=== PATIENT | female | born 1985 | race Caucasian/White ===

== ENCOUNTER → 2016-10-31 | Day surgery (SDC) | payer OTHER ==
[~2016-10-31] VITALS: Ht 160 cm; Wt 90.7 kg
[~2016-10-31] MED LIST: 0.9% Sodium Chloride 1,000 ML IV PRN; ALBU18HF INH; CETI10CA PO; CITA10TA9 PO; EPIN0.1520 IJ; FLUC150T3 PO; FLUT9.9S NS; IBUP-1827 PO; LORA10CA PO; NORG1TAB14 PO; PANT40TA2 PO; Sodium Chloride LOK Flush 10 mL Syringe IV PRN; fentaNYL-PF 50 mCg/mL 2 mL Inj IVPUSH PRN
[2016-10-31 09:24] VITALS: BP 134/79; PULSE 88; RESP 14; O2SAT 97
[2016-10-31 10:13] VITALS: BP 137/89; PULSE 103; O2SAT 96
[2016-10-31 10:24] VITALS: BP 131/83; PULSE 102; O2SAT 97
--- NOTE | 2016-10-31 22:31 | ENDO ---
[address] [address] ENDOSCOPY PROCEDURE PATIENT: TIFFANY SCOTT : 1985 MR#: [id number] ADMIT: 10/31/2016 JOB ID: [id number] DATE OF SERVICE: 10/31/2016 PROCEDURE: Esophagogastroduodenoscopy. INDICATIONS: Gastroesophageal reflux. The patient's ASA classification is 1, Mallampati score is 2. MEDICATIONS: 1. Versed 6 mg. 2. Fentanyl 125 mcg. INSTRUMENT USED: GIF H 180 J. PROCEDURE DETAILS: After informed consent was obtained, the patient was brought to the GI suite, where she was placed on oxygen via nasal cannula and monitored with continuous pulse oximeter, telemetry, and blood pressure monitoring. A time-out was performed. Then, she was placed in the left lateral decubitus position and medications were administered for sedation. A bite block was placed. The standard EGD scope was inserted through the bite block and advanced under direct visualization to the second portion of the duodenum without difficulty. FINDINGS: 1. Normal-appearing duodenal bulb, first and second portion. Multiple random biopsies were obtained. 2. Normal-appearing pylorus and antrum. Multiple random biopsies were obtained. 3. In the gastric body, there was an approximately 5 mm sessile polyp. Polyp appearance was consistent with fundic gland polyp. The polyp was completely removed with cold biopsy forceps. 4. Multiple random biopsies were obtained in the gastric body. 5. Retroflexed views in the gastric body revealed a normal-appearing cardia and fundus. 6. The GE junction was at approximately 35 cm. There was a short tongue of erythema arising from the GE junction. A single biopsy was obtained. Also, at the GE junction there was evidence of a partial Schatzki ring. As the patient had no symptoms of dysphagia or history of food bolus obstruction, dilation of the Schatzki's was not performed. The remainder of the esophagus otherwise unremarkable. IMPRESSION: 1. Gastric body polyp. 2. Slightly irregular gastroesophageal junction. 3. Partial Schatzki's ring. RECOMMENDATIONS: 1. Continue PPI. 2. Weight loss encouraged. 3. Follow up in GI clinic with Yazmin Ruiz PA-C. COMPLICATIONS: None. ESTIMATED BLOOD LOSS: Less than 5 mL.
--- NOTE | 2016-11-02 10:26 | PATH ---
SURGICAL PATHOLOGY Attending Physician:Nikolai Conrad CASE STATUS: Signed Out PATIENT NAME: TIFFANY SCOTT PID: [id number] : 1985 DATE COLLECTED:10/31/2016 16:42 SPECIMEN: 1: Duodenum, Biopsy 2: Gastric, Biopsy 3: Stomach, Polyp, Biopsy 4: Esophagus, Biopsy CLINICAL HISTORY: 1). DUODENAL BIOPSY (RULE OUT H.PYLORI) 2). RANDOM GASTRIC BIOPSY (RULE OUT H.PYLORI) 3). GASTRIC POLYP (RULE OUT H.PYLORI) 4). DISTAL ESOPHAGUS BIOPSY FINAL DIAGNOSIS: 1.DUODENAL BIOPSY: DUODENAL MUCOSA WITH NO DIAGNOSTIC ABNORMALITY. Negative for active inflammation, features of sprue, dysplasia, and malignancy. 2.RANDOM GASTRIC BIOPSY: GASTRIC BODY-TYPE MUCOSA WITH NO DIAGNOSTIC ABNORMALITY. Negative for Helicobacter pylori microorganisms. Negative for intestinal metaplasia. Negative for dysplasia and malignancy. 3.GASTRIC POLYP, BIOPSY: FUNDIC GLAND POLYP. Negative for Helicobacter pylori microorganisms by immunohistochemical stain. Negative for intestinal metaplasia. Negative for dysplasia and malignancy. 4.DISTAL ESOPHAGUS, BIOPSY: SQUAMOCOLUMNAR JUNCITONAL MUCOSA WITH CHRONIC FOCALLY ACTIVE INFLAMMATION INVOLVING GLANDULAR MUCOSA. Negative for intestinal metaplasia. Negative for dysplasia and malignancy. [id number] GROSS DESCRIPTION: The specimen is received in four formalin filled containers labeled with the patient's name. 1). The specimen is labeled "duodenal" and consists of 3 portions of tissue which aggregate to 0.3 x 0.2 x 0.2 CM. The specimen is entirely submitted in cassette 1A. 2). The specimen is labeled "gastric random" and consists of 2 portions of tissue which aggregate to 0.3 x 0.3 x 0.2 CM. The specimen is entirely submitted in cassette 2A. 3). The specimen is labeled "gastric polyp" and consists of a 0.2 x 0.2 x 0.2 CM portion of tissue which is entirely submitted in cassette 3A. 4). The specimen is labeled "distal esophagus" and consists of a 0.4 x 0.2 x 0.2 CM portion of tissue which is entirely submitted in cassette 4A. 10/31/2016DC MICRO DESCRIPTION: 3. An immunohistochemical stain was performed to evaluate for Helicobacter pylori microorganisms. The control stain showed appropriate reactivity. This test was developed and its performance characteristics determined by [facility]. It has not been cleared or approved by the [place]. Food and Drug Administration. The FDA has determined that such clearance or approval is not necessary. This test is used for clinical purposes. It should not be regarded as investigational or for research. ICD-9 CODES: CPT CODES: 1: 67286 2: 01796 3: 41286, 91433 4: 07178 Electronically Signed Out Neo Grover MD [facility] [address], [place] [address] Technical component performed at [facility], [address], [place], [address]
== END | disposition home or self-care (01) ==
LOC: END 00:02
PROVIDERS: ATTEND Internal Medicine Gastroenterology
DX: K31.7 Polyp of stomach and duodenum (principal); K22.2 Esophageal obstruction; K21.9 Gastro-esophageal reflux disease without esophagitis
CPT/HCPCS: 43239; 99153; G0500; J2250; J3010; J7030